=== PATIENT | female | born 1935 | race Caucasian/White ===

== ENCOUNTER 2018-02-05 15:03 | Inpatient (IN) | payer OTHER ==
[~2018-02-05] VITALS: Ht 165.1 cm; Wt 69.9 kg
[~2018-02-05 15:03] MED LIST: ASPIRIN EC81 M1 PO; CELECOXIB100 MG PO; CIPROFLOXACIN500 MG PO; CRESTOR10 M1 PO; GABAPENTIN100 MG PO; METOPROLOL SUCC50 M1 PO; TRIAMTERENE/HCT1 TAB PO
[2018-02-05 16:26] LABS: ABSOLUTE BASOPHIL COUNT 0 /CUMM (0.0-0.2); ABSOLUTE EOSINOPHIL COUNT 0.1 /CUMM (0.0-0.7); ABSOLUTE GRANULOCYTE CT 9.9 /CUMM (1.4-6.5); ABSOLUTE LYMPH COUNT 2.7 /CUMM (1.2-3.4); ABSOLUTE MONOCYTE COUNT 1.4 /CUMM (0.10-0.60); BASOPHIL % 0.2 % (0.0-2.0); EOSINOPHIL % 0.4 % (0-5); GRANULOCYTE % 70.6 % (42.2-75.2); HEMATOCRIT 33.6 % (37-47); MEAN CORPUSCULAR HGB 27.9 PG (27.0-31.0); MEAN CORPUSCULAR HGB CONC 33.3 G/DL (33.0-37.0); MEAN CORPUSCULAR VOLUME 83.8 FL (81.0-99.0); MEAN PLATELET VOLUME 7.6 FL (7.4-10.4); PLATELET COUNT 409 /CUMM (130-400); RED BLOOD CELL CT 4.01 /CUMM (4.20-5.40)
--- NOTE | 2018-02-05 16:47 | ED GENERAL ADULT ---
History of Present Illness General Chief Complaint: Upper Respiratory Sx/Fever Stated Complaint: URI X 1 WEEK/LARYNGITIS Source: patient, family, old records Exam Limitations: no limitations Allergies Coded Allergies: MDX - Penicillin (PENICILLIN) (Severe, ANAPHYLAXIS 02/26/15) Sulfa (Sulfonamide Antibiotics) (HIVES 02/05/18) ciprofloxacin (From CIPRO) (HIVES 02/05/18) Reconcile Medications Aspirin (Ecotrin) 81 MG TABLET.DR 1 TAB PO DAILY HEART HEALTH (Reported) Metoprolol Succinate (Metoprolol Succinate XL) 50 MG TAB.ER.24H 1 TAB PO DAILY BP (Reported) Rosuvastatin Calcium (Crestor) 10 MG TABLET 1 TAB PO DAILY CHOLETEROL ( Reported) TRIAMTERENE/HYDROCHLOROTHIAZID (Triamterene-Hctz 37.5-25 MG Tb) 37.5 MG-25 MG TABLET 1 TAB PO DAILY BP (Reported) Triage Note: PT STATES STATES SHE HAS HAD URI S/S FOR 1 WEEK WITH LARYNGITIS. PT IS TAKING ABX FOR A UTI AND THEN SHE IS FEELING SOB AND DIORIENTED PER DGT. PT ALSO HAS SORE THROAT WITH NO FEVER. PT CURRENTLY TAKING NITROFURANTOIN. PT WAS PLACED ON 2 OTHER ABX BUT HAD HIVES FROM THEM. Triage Nurses Notes Reviewed? yes Onset: Gradual Duration: week(s): (1), constant Timing: recent history Injury Environment: home Severity: moderate Severity Numbers: 6 No Modifying Factors: none Associated Symptoms: denies HPI: 82-year-old female history of coronary artery disease hypertension high cholesterol presents with her daughter for evaluation. The patient has recently finished a course of Macrobid for a urinary tract infection. She states for the past 1 week she's had upper respiratory symptoms nonproductive cough shortness of breath, hoarse voice. Her daughter states she doctor on the phone last night and appeared to be disoriented. She is back to her normal self now area no fever no chills she does report a sore throat. She denies any dysuria urgency frequency hematuria. No nausea vomiting diarrhea. There's been no slurred speech. The patient's daughter states she had a cardiac catheterization performed in March at which time it showed narrowing of her arteries however no stents were needed. (Shanna HULL,Thaddeus) Vital Signs & Intake/Output Vital Signs & Intake/Output Vital Signs Date Time Temp Pulse Resp B/P B/P Pulse O2 O2 Flow FiO2 Mean Ox Delivery Rate 02/05 1943 97.7 71 20 172/67 98 Room Air 02/05 1826 94 02/05 1654 65 18 169/73 97 Room Air 02/05 1650 95 Room Air 02/05 1612 98.6 72 18 176/71 95 Room Air (Valencia VALERIO,Raudel Yuan) Past History Travel History Traveled to [place] past 21 day No Medical History Any Pertinent Medical History? see below for history Cardiovascular: hypertension, hyperlipidemia Musculoskeletal: osteoarthritis, spinal stenosis Pneumonia Vaccine: 08/29/13 Surgical History Surgical History: non-contributory Psychosocial History Who do you live with Spouse Services at Home None What is your primary language B[place]an Tobacco Use: Never used ETOH Use: denies use Illicit Drug Use: denies illicit drug use Family History Hx Contributory? No (Thaddeus Stewart) Review of Systems Review of Systems Constitutional: Reports: see HPI. Comments Review of systems: See HPI, All other systems negative. Constitutional, no chills no fever, malaise HEENT: no sore throat no congestion, no ear pain Cardiovascular: No chest pain , no palpitation Skin: no rashes, no change in skin Respiratory: No dyspnea cough no sputum no hemoptysis GI: No nausea no vomiting, no diarrhea Muscle skeletal: No joint pain, no back pain Neurologic: , no headache Heme/endocrine: No bruising Immunology: No lymphadenopathy (Thaddeus Stewart) Physical Exam Physical Exam General Appearance: well developed/nourished, alert, awake Comments: Well-developed well-nourished person in no acute distress HEENT: Normal EENT exam; PERRL, EOMI, HEAD is atraumatic. moist mucous membranes. Neck: Supple, normal range of motion Back: Nontender, no CVA tenderness. Full range of motion Cardiovascular: Regular rate and rhythms no murmur Respiratory: Chest nontender.There were no bony deformities, no asymmetry. No respiratory distress. Patient speaking in full complete sentences. Breath sounds clear to auscultation bilaterally: NO W/R/R Abdomen: Soft, nontender nondistended, no appreciable organomegaly. Normal bowel sounds. No rebound/guarding, No ascites. Extremity: No edema, full range of motion of extremities, Neuro: Alert oriented x3, motor sensory normal, cranial nerves II through XII grossly intact. There were no obvious focal neurologic abnormalities. Skin: No appreciable rash on exposed skin, skin is warm and dry. Psych: Mood and affect is normal, memory and judgment is normal. Core Measures ACS in differential dx? Yes CVA/TIA Diagnosis: No Sepsis Present: No Sepsis Focused Exam Completed? No (Thaddeus Stewart) Progress Differential Diagnoses I considered the following diagnoses in my evaluation of the patient: UTI urosepsis pyelonephritis, pneumonia bronchitis influenza lecture light abnormality dehydration ami, unstable angina Diagnostic Imaging: Viewed by Me: Radiology Read. Discussed w/RAD: Radiology Read. Initial ED EKG: normal sinus rhythm, nonspecific ST T wave chg Prior EKG: unchanged (01/11) Rhythm Strip: normal sinus rhythm (Thaddeus Stewart) Plan of Care: Orders Procedure Date/time Status Regular Diet 02/06 D Active Heart Healthy Diet 02/06 B Active Pathway - chart 02/05 2142 Active House Staff 02/05 2142 Active Code Status 02/05 2142 Active URINE LYTES, SPOT 02/06 2132 Active ED Holding Orders 02/05 2051 Active Admit to inpatient 02/05 2051 Active Vital Signs 02/05 2051 Active Code Status 02/05 205 Complete Patient Data 02/05 202 Active BLOOD CULTURE 02/05 1711 Active LACTIC ACID 02/05 1711 Complete Intake & Output 02/05 1654 Active CULTURE,URINE 02/05 1645 Active URINALYSIS 02/05 1645 Complete TROPONIN LEVEL 02/05 1613 Complete COMPREHENSIVE METABOLIC PANEL 02/05 1613 Complete CBC WITHOUT DIFFERENTIAL 02/05 1613 Complete EKG 02/05 1613 Active RAPID VIRAL INFLUENZA A 02/05 1549 Complete VTE Mechanical Prophylaxis 02/05 UNK Active Current Medications Sig/Nicola Start time Last Medication Dose Stop Time Status Admin Heparin Sodium 5,000 UNIT Q8 02/05 2200 AC (Porcine) Sodium Chloride 1,000 ML ONCE ONE 02/05 1830 AC 02/05 (Normal Saline 0.9%) 02/069 204 Laboratory Tests 02/05/18 2011: Lactic Acid Cancelled 02/05/18 1728: Lactic Acid 1.1, Urinalysis MOD H, Urine Color YEL, Urine Clarity CLEAR, Urine pH 6.0, Ur Specific [place] 1.010, Urine Protein TRACE H, Urine Ketones NEG, Urine Nitrite NEG, Urine Bilirubin NEG, Urine Urobilinogen 1.0, Ur Leukocyte Esterase TRACE H, Ur Microscopic SEDIMENT EXAMINED, Urine WBC 3-5 H, Ur Epithelial Cells FEW, Urine Bacteria FEW H, Granular Casts FEW H, Urine Hemoglobin NEG, Urine Glucose NEG 02/05/18 1615: Anion Gap 15, Estimated GFR 39 L, BUN/Creatinine Ratio 18.5, Glucose 112 H, Calcium 9.1, Total Bilirubin 0.8, AST 58 H, ALT 58 H, Alkaline Phosphatase 105 , Troponin I 0.01, Total Protein 7.2, Albumin 4.1, Globulin 3.1, Albumin/ Globulin Ratio 1.3, CBC w Diff NO MAN DIFF REQ, RBC 4.01 L, MCV 83.8, MCH 27.9, MCHC 33.3, RDW 14.0, MPV 7.6, Gran % 70.6, Lymphocytes % 19.0 L, Monocytes % 9.8 H, Eosinophils % 0.4, Basophils % 0.2, Absolute Granulocytes 9.9 H, Absolute Lymphocytes 2.7, Absolute Monocytes 1.4 H, Absolute Eosinophils 0.1, Absolute Basophils 0 Microbiology 02/05 175 BLOOD: Blood Culture - RECD 02/05 1728 URINE ROUT: Urine Culture - RECD 02/05 1728 BLOOD: Blood Culture - RECD 02/05 1615 NASOPHARYN: Influenza Virus A & B Rapid Smear - COMP (Valencia VALERIO,Raudel Yuan) Departure Departure Time of Disposition: 1830 Disposition: HOME OR SELF CARE Condition: Stable Clinical Impression Primary Impression: Hyponatremia Secondary Impressions: Acute electrocardiogram changes, UTI (urinary tract infection) Referrals: Toño Langley MD (PCP/Family) Departure Forms: Customer Survey General Discharge Information Admission Note Spoke With: Moses VALERIO,Kirt Vincent Documentation of Exam: Documentation of any treatments & extenuating circumstances including Concerns Regarding Discharge (functional status, medication knowledge or non-compliance, living conditions, etc.) that warrant an admission rather than observation: iv abx, trend labs, trend trooponin, iv fluids, cardio consult, premature discharge would be medically harmful (Shanna HULL,Thaddeus) PA/SAP PI DEVELOPER Co-Sign Statement Statement: ED Attending supervision documentation- [x] I saw and evaluated the patient. I have also reviewed all the pertinent lab results and diagnostic results. I agree with the findings and the plan of care as documented in the PA's/SAP PI DEVELOPER's documentation. Patient presents for evaluation of upper respiratory symptoms, hoarse voice and dyspnea. Physical examination reveals a relatively comfortable appearing woman with a hoarse voice and harsh breath sounds bilaterally on lung examination. [] I have reviewed the ED Record and agree with the PA's/SAP PI DEVELOPER's documentation. [] Additions or exceptions (if any) to the PAs/SAP PI DEVELOPER's note and plan are summarized below: [] (Valencia VALERIO,Raudel Yuan) Critical Care Note Critical Care Note Critical Care Time: non-applicable (Shanna HULL,Thaddeus)
--- NOTE | 2018-02-05 17:58 | RADIOLOGY REPORT ---
EXAMINATION: XR PORTABLE CHEST CLINICAL INFORMATION: 82-year-old female patient with shortness of breath and chest pain. Presumptive diagnosis: Pneumonia. COMPARISON: Chest x-ray on 11/20/2017. (Normal). TECHNIQUE: Portable AP semierect view of the chest was obtained. FINDINGS: No significant abnormality is noted involving the heart, lungs, mediastinum, bony thorax or soft tissues. IMPRESSION: No pneumonia.
--- NOTE | 2018-02-05 20:27 | History & Physical ---
[facility] General Information and HPI MD Statement: I have seen and personally examined NILES MENDEZ and documented this H&P. The patient is a 82 year old F who presented with a patient stated chief complaint of [chest congestion]. Source of Information: patient, family Exam Limitations: no limitations History of Present Illness: 82 yo F with PMH of hypertension, hyperlipidemia, CAD, OA, spinal stenosis, aortic stenosis was brought in to the ED by her daughter for evaluation of upper respiratory symptoms. Most of the history has been obtained from the daughter. The daugher states that for the past week the patient has been experiencing worsening chest congestion, nonproductive cough with hoarse voice. Her symptoms were particularly worse today. The daughter felt that the patient appeared to be confused last night but is completely normal today. Also the patient has had a poor oral intake the past few days. She normally walks around the house using a cane. No falls reported. The patient was recently treated for a UTI. She was initialy treated with Bactrim but developed a rash to it and hence was switched to Macrobid which she is still taking. According to the daughter, the patient experiences white coat hypertension. Allergies/Medications Home Med list Aspirin (Ecotrin) 81 MG TABLET.DR 1 TAB PO DAILY HEART HEALTH (Reported) Lisinopril/Hydrochlorothiazide (Lisinopril-Hctz 20-25 MG Tab) 20 MG-25 MG TABLET 1 TAB PO DAILY HTN (Reported) Metoprolol Succinate (Metoprolol Succinate XL) 50 MG TAB.ER.24H 1 TAB PO DAILY BP (Reported) Metoprolol Succinate 50 MG TAB.ER.24H 1 TAB PO DAILY HIGH BLOOD PRESSURE ( Reported) Nitrofurantoin Macrocrystal (Nitrofurantoin) 50 MG CAPSULE 1 CAP PO DAILY ANTIBIOTIC, INFECTION (Reported) Rosuvastatin Calcium (Crestor) 10 MG TABLET 1 TAB PO DAILY CHOLETEROL ( Reported) Rosuvastatin Calcium (Crestor) 10 MG TABLET 1 TAB PO DAILY HIGH CHOLESTROL ( Reported) TRIAMTERENE/HYDROCHLOROTHIAZID (Triamterene-Hctz 37.5-25 MG Tb) 37.5 MG-25 MG TABLET 1 TAB PO DAILY BP (Reported) Triamterene/Hydrochlorothiazid (Triamterene-Hctz 37.5-25 MG Tb) 37.5 MG-25 MG TABLET 1 TAB PO DAILY HIGH BLOOD PRESSURE (Reported) Past History Travel History Traveled to [place] past 21 day No Medical History Cardiovascular: hypertension, hyperlipidemia Musculoskeletal: osteoarthritis, spinal stenosis Pneumonia Vaccine: 08/29/13 Surgical History Surgical History: non-contributory Past Family/Social History Psychosocial History Services at Home: None ETOH Use: denies use Illicit Drug Use: denies illicit drug use Review of Systems Review of Systems Constitutional: Reports: chills. Denies: fever. EENTM: Reports: no symptoms. Cardiovascular: Denies: chest pain, palpitations. Respiratory: Reports: cough, short of breath. GI: Denies: abdominal pain. Genitourinary: Reports: no symptoms. Musculoskeletal: Denies: joint pain, muscle pain. Skin: Reports: no symptoms. Neurological/Psychological: Reports: no symptoms. Hematologic/Endocrine: Reports: no symptoms. Exam & Diagnostic Data Last 24 Hrs of Vital Signs/I&O Vital Signs Date Time Temp Pulse Resp B/P B/P Pulse O2 O2 Flow FiO2 Mean Ox Delivery Rate 02/05 2251 98.1 69 20 172/70 02/05 2215 98.1 69 20 172/70 98 Room Air 02/05 1943 97.7 71 20 172/67 98 Room Air 02/05 1826 94 02/05 1654 65 18 169/73 97 Room Air 02/05 1650 95 Room Air 02/05 1612 98.6 72 18 176/71 95 Room Air Intake & Output 02/06 0800 02/06 0000 02/05 1600 Intake Total 0 Output Total Balance 0 Intake, Oral 0 Patient 140 lb Weight Weight Reported by Patient Measurement Method Physical Exam General Appearance Alert, Oriented X3, Cooperative, Mild Distress Skin No Rashes, No Breakdown Skin Temp/Moisture Exam: Warm/Dry Sepsis Skin Exam (color): Normal for Ethnicity HEENT Atraumatic Cardiovascular Normal S1, Normal S2, No Murmurs Lungs diffuse wheezing Abdomen Soft, No Tenderness Neurological Normal Speech Extremities trace b/l lower extremity edema Assessment/Plan Assessment: 82 yo F with PMH of hypertension, hyperlipidemia, OA, spinal stenosis, aortic stenosis was brought in to the ED by her daughter for evaluation of upper respiratory symptoms. Assessment: 1. Bronchitis 2. EKG changes with T-wave inversions in V4-V5. 3. Hyponatremia 4. UTI Plan: * Admit to telemetry * Serial trops and EKGs to r/o ACS due to EKG changes * Hydrate with one bag of IV NS @150ml/hr. Hyponatremia likely in the setting of poor oral intake and diuretic use. * F/u urine lytes * Follow up blood culture and urine culture * She was given one dose of IV 1g Ceftriaxone in the ER. Can be continued on it. * TRC/nebs as needed. * Continue home meds but will hold HCTZ in the setting of hyponatremia. * The patient follows Dr Deepa Rosario (vascular surgery) and was due to see him on 02/06. Confirm if the patient needs to see him while inpatient. * Diet: Regular * DVT Prophylaxis: SC heparin * Code: Full Code. As Ranked By This Provider Problem List: 1. Acute electrocardiogram changes Core Measures/Misc (07/15) Acute Coronary Syndrome ACS Diagnosis: No Congestive Heart Failure Congestive Heart Failure Diagnosis No Cerebrovascular Accident CVA/TIA Diagnosis: No VTE (View Protocol) VTE Risk Factors Age>40 No Mechanical VTE Prophylaxis d/t N/A MechProphylax Ordered No VTE Pharm Prophylaxis d/t NA PharmProphylax ordered Sepsis (View protocol) Sepsis Present: No Blake VALERIO,Ismail 02/06/18 0500: General Information and HPI Allergies/Medications Allergies: Coded Allergies: Penicillins (Severe, ANAPHYLAXIS 02/06/18) Sulfa (Sulfonamide Antibiotics) (HIVES 02/05/18) ciprofloxacin (From CIPRO) ([facility] 02/05/18) Resident Review Statement Resident Statement: examined this patient, discussed with internal control analyst, agreed with internal control analyst Other Findings: 82 year old female with PMHx of HTN, HLD, CAD s/p catheterization in March without stent, OA, spinal stenosis, aortic stenosis and carotid stenosis who presented for chief complaint of upper respiratory infection and generalize weakness. Recently the patient had UTI for which she was treated with ciprofloxacin, the patient developed rash allergic reaction for which she was switched to Macrobid. For the past week she started to complain of nonproductive cough, dyspnea, mild runny nose, and hoarseness of voice. Her symptom progressed through the week and started to be associated with generalized weakness and poor appetite. She denies fever, chills, chest pain, or palpitation. She denies dysuria, polyuria, or hematuria. Vitals and physical exam on admission: Temp 98.6, HR 72, RR 18, BP 176/71, Ox 95 on RA. Physical Exam: General appearance A & O x3 in mild distress, HEENT normal , CVS NL S1/S2 with 2/6 systolic murmur best heard over the apex, no JVD rubs or gallop. Resp diffuse scattered wheezing and mild bilateral basal rhonchi, intermittent dry cough, hoarseness of voice. LE trace B/L LE edema. Significant labs and imaging on admission: Leukocytosis of 14, H&H 11.2&33.6, Plt 409. Na 127, K 3.6, Cr 1.3 (at baseline), very mild transaminitis, normal calcium. CXR no significant finding. Assessment The patient presented with symptom of upper respiratory infection and possible bronchitis. She has poor oral intake for few days, however she continued taking 2 diuretics pills includes lisinopril-HCTZ and Triamteren-HCTZ. Flu test was negative. She received ceftriaxone in the ED. EKG showed new T-wave inversion in V4,5,6. Troponin 0.01 then 0.03. She denies any current active chest pain. According to the patient daughter, the patient has significant aortic stenosis and carotid stenosis, she had appointment with vascular tomorrow to further address her carotid stenosis. Problem list * Dry cough possibly secondary to bronchitis * T-wave inversion in lead V4,5,6 * Generalize weakness most likely secondary to dehydration and poor oral intake * Hyponatremia most likely secondary to dehydration * UTI * HTN and HLD * Alert stenosis * Carotid stenosis * CAD s/p catheterization in March without stent Plan * We will admit to telemetry rule out ACS with serial EKG and troponin * Hold lisinopril, hydrochlorothiazide, and Triamteren * Repeat renal function in the morning * Continue aspirin and statin * Start amlodipine 5 mg controlled blood pressure * TRC/nebulizer as needed * Panculture * Continue IV ceftriaxone * Guaifenesin as needed * Send for urine electrolytes and osmolarity(patient was given IV fluids in the ED) * Repeat BEP in the morning. -Heart healthy diet -DVT Prophylaxis: SC heparin -Code: Full Code. Moses VALERIO,[facility] 02/06/18 1348: Attending MD Review Statement Attending Statement Attending MD Statement: examined this patient, discuss w/resident/PA/COLLECTION ANALYST, agreed w/resident/PA/COLLECTION ANALYST, discussed with family, reviewed EMR data (avail), discussed with nursing, discussed with case mgmt, reviewed images, amended to note Attending Assessment/Plan: Seen and examined stable Issues Sig hyponatremia Dehydration New EKG changes with Aortic stenosis rule out active ihd, pt had a recent stent in march URI with sig bronchitis Hoarse voice with laryngitis needs to be investigated if it does not resolve UTI, PLAN Admit Rule out mi watch sodium replace lYtes Call Cardio Other plan as noted
[2018-02-05] MEDS ORDERED: LISINOPRIL-HCT1 EAC1 PO (21:54)
[2018-02-05] MEDS ORDERED: METOPROLOL SUCC50 M2 PO (22:21)
[2018-02-05] MEDS ORDERED: TRIAMTERENE-HC1 EAC1 PO (22:22)
[2018-02-05] MEDS ORDERED: NITROFURANTOIN50 M1 PO (22:22)
[2018-02-05] MEDS ORDERED: CRESTOR10 M1 PO (22:22)
--- NOTE | 2018-02-06 05:35 | Event Note ---
Event Note Event Note: I spoke to the patient granddaughter Ce over the phone. She is in the medical field and she is following her grandmother medical conditions. She sent me EKG that was done last year that did not show T-wave inversion as seen in current EKGs. She also informed me about Echo report summary that was done to further address her aortic stenosis. " TTE 05/19/2016 showed moderate stenosis, peak velocity (aortic) 3.6, mean aortic gradient 30 with aortic valve area 1.0. TTE 01/05/17 showed moderate stenosis: Peak aortic velocity 3.6, mean gradient 27 and aortic area 0.9.
[2018-02-06 07:28] VITALS: BP 148/68
[2018-02-06 08:42] LABS: ABSOLUTE BASOPHIL COUNT 0 /CUMM (0.0-0.2); ABSOLUTE EOSINOPHIL COUNT 0.1 /CUMM (0.0-0.7); ABSOLUTE GRANULOCYTE CT 7.6 /CUMM (1.4-6.5); EOSINOPHIL % 1.2 % (0-5)
[2018-02-06 08:57] LABS: BASOPHIL % 0.3 % (0.0-2.0); GRANULOCYTE % 64.3 % (42.2-75.2); MEAN CORPUSCULAR HGB 27.9 PG (27.0-31.0); MEAN CORPUSCULAR HGB CONC 33.4 G/DL (33.0-37.0); MEAN CORPUSCULAR VOLUME 83.5 FL (81.0-99.0); MEAN PLATELET VOLUME 8.2 FL (7.4-10.4); PLATELET COUNT 344 /CUMM (130-400); RBC DISTRIBUTION WIDTH 13.9 % (11.5-14.5); RED BLOOD CELL CT 3.36 /CUMM (4.20-5.40); WHITE BLOOD CELL COUNT 11.8 /CUMM (4.8-10.8)
--- NOTE | 2018-02-06 10:28 | PN- Housestaff ---
Rik VALERIO,Elsie 02/06/18 1027: Subjective Follow-up For: bronchitis new t wave ekg changes hyponatremia hypokalemia anemia Tele-Events Since Last Visit: nsr no events Subjective: patient states that she continues to have hoarseness and chest "congestion". she denies any urinary symptoms (as she recently has been on antibiotics for UTI ) Review of Systems Constitutional: Reports: no symptoms. Cardiovascular: Reports: no symptoms. Respiratory: Reports: see HPI, short of breath, wheezing. Gastrointestinal: Reports: no symptoms. Genitourinary: Reports: no symptoms. Musculoskeletal: Reports: no symptoms. Objective Last 24 Hrs of Vital Signs/I&O Vital Signs Date Time Temp Pulse Resp B/P B/P Pulse O2 O2 Flow FiO2 Mean Ox Delivery Rate 02/06 1735 174/76 02/06 1630 97 Room Air 02/06 1531 98.1 81 20 174/76 98 Room Air 02/06 1153 Room Air 02/06 1122 97 Room Air 02/06 0934 70 160/62 02/06 0934 97.8 70 20 160/62 02/06 0800 94 Room Air Room Air 02/06 0728 97.8 63 20 148/68 99 Nasal 2.0L Cannula 02/06 0521 98 Nasal 2.0L Cannula 02/06 0000 Room Air 02/05 2251 98.1 69 20 172/70 02/05 2215 98.1 69 20 172/70 98 Room Air 02/05 1943 97.7 71 20 172/67 98 Room Air 02/05 1826 94 Intake & Output 02/06 1600 02/06 0800 02/06 0000 Intake Total 1180 500 0 Output Total 300 Balance 1180 200 0 Intake, IV 700 400 Intake, Oral 480 100 0 Number 0 Bowel Movements Output, Urine 300 Patient 140 lb Weight Weight Reported by Patient Measurement Method Physical Exam General Appearance: Alert, Oriented X3, Cooperative, No Acute Distress Skin Temp/Moisture Exam: Warm/Dry Sepsis Skin Exam (color): Normal for Ethnicity HEENT: Atraumatic, PERRLA, EOMI, Mucous Membr. moist/pink Neck: Supple, No JVD Cardiovascular: Regular Rate, Normal S1, Normal S2, No Murmurs Lungs: Clear to Auscultation, Normal Air Movement Abdomen: Normal Bowel Sounds, Soft, No Tenderness, No Hepatospenomegaly, No Masses Neurological: Normal Speech Extremities: No Clubbing, No Cyanosis, No Edema, Normal Pulses Current Medications: Current Medications Sig/Nicola Start time Last Medication Dose Route Stop Time Status Admin Albuterol Sulfate 3 ML EVERY 4 HRS/AWAKE 02/06 2000 AC INH Albuterol Sulfate 3 ML EVERY 4 HRS/AWAKE 02/06 1600 AC 02/06 INH 1630 Albuterol Sulfate 3 ML Q4P PRN 02/06 1115 DC 02/06 INH 1101 Albuterol Sulfate 3 ML ONCE ONE 02/06 0515 DC 02/06 INH 02/06 0516 0511 Amlodipine Besylate 2.5 MG DAILY 02/06 1316 AC 02/06 PO 1735 Amlodipine Besylate 5 MG DAILY 02/06 1000 AC 02/06 PO 0934 Amlodipine Besylate 5 MG ONCE ONE 02/05 2300 DC 02/05 PO 02/05 2301 2251 Amlodipine Besylate 0 .STK-MED ONE 02/05 2246 DC PO Aspirin Buffered 81 MG DAILY 02/06 1000 AC 02/06 PO 0934 Atorvastatin Calcium 40 MG 1700 02/06 1700 AC 02/06 PO 1736 Ceftriaxone Sodium 1,000 MG DAILY 02/06 1000 DC 02/06 IV 0935 Ceftriaxone Sodium 0 .STK-MED ONE 02/05 1836 DC .ROUTE Ceftriaxone Sodium 1,000 MG ONCE ONE 02/05 1830 DC 02/05 IV 02/05 1831 1841 Guaifenesin 10 ML Q4P PRN 02/06 0515 AC 02/06 PO 0528 Guaifenesin/ 10 ML .STK-MED ONE 02/06 0944 DC Dextromethorphan PO 02/06 0945 Heparin Sodium 5,000 UNIT Q8 02/05 2200 AC 02/06 (Porcine) SC 1406 Metoprolol Succinate 50 MG DAILY 02/06 1000 AC 02/06 PO 0934 Potassium Chloride 40 MEQ ONCE ONE 02/06 1315 DC 02/06 PO 02/06 1316 1410 Sodium Chloride 1,000 ML Q10H 02/06 0530 DC 02/06 IV 0528 Sodium Chloride 1,000 ML BOLUS ONE 02/05 1830 DC 02/05 IV 02/05 1929 1841 Sodium Chloride 1,000 ML ONCE ONE 02/05 1830 DC 02/05 IV 02/06 0109 2042 Last 24 Hrs of Lab/Ronnell Results Last 24 Hrs of Labs/Mics: Laboratory Tests 02/06/18 0630: Anion Gap 11, Estimated GFR 53 L, BUN/Creatinine Ratio 18.0, Troponin I 0.02, CBC w Diff NO MAN DIFF REQ, RBC 3.36 L, MCV 83.5, MCH 27.9, MCHC 33.4, RDW 13.9 , MPV 8.2, Gran % 64.3, Lymphocytes % 25.5, Monocytes % 8.7, Eosinophils % 1.2, Basophils % 0.3, Absolute Granulocytes 7.6 H, Absolute Lymphocytes 3.0, Absolute Monocytes 1.0 H, Absolute Eosinophils 0.1, Absolute Basophils 0 02/05/182203: Troponin I 0.03 02/05/182203: Anion Gap 10, Estimated GFR 43 L, BUN/Creatinine Ratio 18.3 02/05/182149: Ur Random Creatinine 46.9, Ur Random Sodium 47, Ur Random Potassium 9.3, Fraction Sodium Excret 1.0 02/05/182010: Lactic Acid Cancelled Assessment/Plan Assessment: 82 year old female with PMHx of HTN, HLD, CAD s/p catheterization in March without stent, OA, spinal stenosis, aortic stenosis and carotid stenosis who presented for chief complaint of upper respiratory infection and generalize weakness. Recently the patient had UTI for which she was treated with ciprofloxacin, the patient developed rash allergic reaction for which she was switched to Macrobid. For the past week she started to complain of nonproductive cough, dyspnea, mild runny nose, and hoarseness of voice. Her symptom progressed through the week and started to be associated with generalized weakness and poor appetite. She denies fever, chills, chest pain, or palpitation. She denies dysuria, polyuria, or hematuria. Vitals and physical exam on admission: Temp 98.6, HR 72, RR 18, BP 176/71, Ox 95 on RA. Physical Exam: General appearance A & O x3 in mild distress, HEENT normal , CVS NL S1/S2 with 2/6 systolic murmur best heard over the apex, no JVD rubs or gallop. Resp diffuse scattered wheezing and mild bilateral basal rhonchi, intermittent dry cough, hoarseness of voice. LE trace B/L LE edema. Significant labs and imaging on admission: Leukocytosis of 14, H&H 11.2&33.6, Plt 409. Na 127, K 3.6, Cr 1.3 (at baseline), very mild transaminitis, normal calcium. CXR no significant finding. Assessment The patient presented with symptom of upper respiratory infection and possible bronchitis. She has poor oral intake for few days, however she continued taking 2 diuretics pills includes lisinopril-HCTZ and Triamteren-HCTZ. Flu test was negative. She received ceftriaxone in the ED. EKG showed new T-wave inversion in V4,5,6. Troponin 0.01 then 0.03. She denies any current active chest pain. According to the patient daughter, the patient has significant aortic stenosis and carotid stenosis, she had appointment with vascular tomorrow to further address her carotid stenosis. TTE 05/19/2016 showed moderate stenosis, peak velocity (aortic) 3.6, mean aortic gradient 30 with aortic valve area 1.0. TTE showed moderate stenosis: Peak aortic velocity 3.6, mean gradient 27 and aortic area 0.9. Problem list * Dry cough possibly secondary to bronchitis or lisinopril?? * T-wave inversion in lead V4,5,6 * Generalize weakness most likely secondary to dehydration and poor oral intake * Hyponatremia most likely secondary to dehydration and hctz * hypokalemia * anemia * HTN and HLD * Aortic stenosis * Carotid stenosis * CAD s/p catheterization in March without stent Plan * serial ekgs unchanged and trops negative, patient has no symptoms. * Hold lisinopril, hydrochlorothiazide, and Triamterene * Continue aspirin and statin * amlodipine 7.5mg to bring bp to systolic 140's. continue outpatient metoprolol 50mg. * TRC/nebulizer as needed AND OXYGEN as needed * follow panculture * stop ceftriaxone as she has received antibiotics fuill dose for uncomplicated uti * Guaifenesin as needed * follow na and k and replete k as needed. sodium has increased to 131 from 127. patient likely dehydrated as fena 1, urine random sodium normal and responded to fluids. additionally hctz could contribute so hold. hold lisinopril for cough and hoarse voice, may need arb. * patient has a relative anemia- drop in Hb. irons studies pending. goal hb to stay above 8. -Heart healthy diet -DVT Prophylaxis: SC heparin -Code: Full Code. Problem List: 1. Acute electrocardiogram changes 2. Hypokalemia 3. Hyponatremia Pain Ratin Pain Location: na Pain Goal: Remain pain free Pain Plan: na Tomorrow's Labs & Rationales: cbc bep Moses VALERIO,[facility] 02/06/18 1352: Attending MD Review Statement Attending Statement Attending MD Statement: examined this patient, discuss w/resident/PA/[employer], agreed w/resident/PA/[employer], discussed with family, reviewed EMR data (avail), discussed with nursing, discussed with case mgmt, reviewed images, amended to note Attending Assessment/Plan: Seen and examined independently 82 yo F with PMH of hypertension, hyperlipidemia, OA, spinal stenosis, aortic stenosis was brought in to the ED by her daughter for evaluation of upper respiratory symptoms. Assessment: 1. Bronchitis/ Acute renal failure due to dehyration, uti and hctz now resolved 2. EKG changes with T-wave inversions in V4-V5. 3. Hyponatremia due to dehydration and hctz 4. Recent Ecoli UTI 5. Aortic stenosis 6. rule out ihd 7. Hoarse voice with laryngitis 8. PVD with carotid stenosis with no urgent need for vascular intervention REC cont current meds DC HCTZ meds completely REplace potassium by mouth DC lisinopril (cough and hoarse voice) and if bp permits start low dose losartan Cont low dose norvasc cont statin Start Azitro 500 qd for 5 days for bronchitis Nebs prn Po potassium replacement Watch sodium Cont asprin
--- NOTE | 2018-02-06 13:49 | Admission Certification ---
Admission Certification Certification Statement - As attending physician, I certify that at the time of - admission, based on clinical presentation, severity of - symptoms, need for further diagnostic testing and - therapeutic interventions, and risk of adverse outcomes - without in-hospital treatment, in my clinical assessment, - this patient requires an acute hospital stay for a minimum - of two nights or longer. I have also considered psychsocial - factors such as support system, advanced age, financial - issues, cognitive issues, and failed out-patient treatments, - past re-admission history, safety of patient, and lack of - compliance as applicable. Specific rationale supporting this admission is: chest pain discomfort, ekg changes, bronchitis and generalized weakness with sig hyponatremia
[2018-02-06 15:31] VITALS: BP 174/76
[2018-02-06 20:44] LABS: ABSOLUTE BASOPHIL COUNT 0.1 /CUMM (0.0-0.2); ABSOLUTE EOSINOPHIL COUNT 0.2 /CUMM (0.0-0.7); ABSOLUTE GRANULOCYTE CT 7.3 /CUMM (1.4-6.5); ABSOLUTE LYMPH COUNT 3.8 /CUMM (1.2-3.4); ABSOLUTE MONOCYTE COUNT 0.9 /CUMM (0.10-0.60); BASOPHIL % 0.6 % (0.0-2.0); EOSINOPHIL % 1.6 % (0-5); GRANULOCYTE % 59.6 % (42.2-75.2); HEMATOCRIT 31.3 % (37-47); MEAN CORPUSCULAR HGB 26.9 PG (27.0-31.0); MEAN CORPUSCULAR HGB CONC 32.1 G/DL (33.0-37.0); MEAN CORPUSCULAR VOLUME 83.7 FL (81.0-99.0); MEAN PLATELET VOLUME 8.1 FL (7.4-10.4); PLATELET COUNT 437 /CUMM (130-400); RBC DISTRIBUTION WIDTH 14.1 % (11.5-14.5); RED BLOOD CELL CT 3.74 /CUMM (4.20-5.40); WHITE BLOOD CELL COUNT 12.2 /CUMM (4.8-10.8)
[2018-02-06 22:34] VITALS: BP 142/56
[2018-02-07 06:59] VITALS: BP 122/68
[2018-02-07 07:48] LABS: ABSOLUTE BASOPHIL COUNT 0.1 /CUMM (0.0-0.2); ABSOLUTE EOSINOPHIL COUNT 0.2 /CUMM (0.0-0.7); ABSOLUTE GRANULOCYTE CT 7.1 /CUMM (1.4-6.5); BASOPHIL % 0.4 % (0.0-2.0); EOSINOPHIL % 1.9 % (0-5); HEMATOCRIT 27.8 % (37-47); MEAN CORPUSCULAR HGB 28.6 PG (27.0-31.0); MEAN CORPUSCULAR HGB CONC 34.5 G/DL (33.0-37.0); MEAN PLATELET VOLUME 7.7 FL (7.4-10.4); PLATELET COUNT 399 /CUMM (130-400); RBC DISTRIBUTION WIDTH 14.2 % (11.5-14.5); RED BLOOD CELL CT 3.36 /CUMM (4.20-5.40); WHITE BLOOD CELL COUNT 11.4 /CUMM (4.8-10.8)
--- NOTE | 2018-02-07 08:20 | PN- Housestaff ---
Subjective Follow-up For: bronchitis new t wave ekg changes hyponatremia hypokalemia anemia Complaints: no complaints Tele-Events Since Last Visit: Normal sinus rhythm with rates from 61-88, no events Subjective: Patient states that she continues to have chest congestion and now is producing white sputum after taking Tessalon Perles. She states that she feels tired. She has been constipated for the past 4 days. Review of Systems Constitutional: Reports: no symptoms. Cardiovascular: Reports: no symptoms. Respiratory: Reports: cough, wheezing. Gastrointestinal: Reports: constipation. Musculoskeletal: Reports: no symptoms. Objective Last 24 Hrs of Vital Signs/I&O Vital Signs Date Time Temp Pulse Resp B/P B/P Pulse O2 O2 Flow FiO2 Mean Ox Delivery Rate 02/07 1410 98.0 79 20 146/60 96 Room Air 02/07 0903 74 122/68 02/07 0902 74 122/68 02/07 0820 96 Room Air 02/07 0659 97.4 74 20 122/68 97 Room Air 02/07 0000 Room Air 02/06 2234 98.0 79 20 142/56 98 Room Air 02/06 1735 174/76 02/06 1630 97 Room Air Intake & Output 02/07 1600 02/07 0800 02/07 0000 Intake Total 480 Output Total Balance 480 Intake, Oral 480 Patient 152 lb Weight Weight Chair scale Measurement Method Physical Exam General Appearance: Alert, Oriented X3, Cooperative, No Acute Distress Skin Temp/Moisture Exam: Warm/Dry Sepsis Skin Exam (color): Normal for Ethnicity HEENT: Atraumatic, PERRLA, EOMI, Mucous Membr. moist/pink Neck: Supple, No JVD Cardiovascular: Regular Rate, Normal S1, Normal S2 Lungs: mild wheezing throughout Abdomen: Normal Bowel Sounds, Soft, No Tenderness Neurological: Normal Speech Extremities: No Clubbing, No Cyanosis, No Edema, Normal Pulses Current Medications: Current Medications Sig/Nicola Start time Last Medication Dose Route Stop Time Status Admin Albuterol Sulfate 3 ML EVERY 4 HRS/AWAKE 02/06 2000 DC INH Albuterol Sulfate 3 ML EVERY 4 HRS/AWAKE 02/06 1600 AC 02/07 INH 1310 Amlodipine Besylate 7.5 MG DAILY 02/07 0900 AC 02/07 PO 0903 Amlodipine Besylate 2.5 MG DAILY 02/06 1316 DC 02/06 PO 1735 Amlodipine Besylate 5 MG DAILY 02/06 1000 DC 02/06 PO 0934 Aspirin Buffered 81 MG DAILY 02/06 1000 AC 02/07 PO 0901 Atorvastatin Calcium 40 MG 1700 02/06 1700 AC 02/06 PO 1736 Azithromycin 500 MG DAILY@0900 02/07 0900 AC 02/07 PO 02/11 0901 0901 Benzonatate 100 MG TID PRN 02/06 2145 AC 02/07 PO 02/09 214 0901 Docusate Sodium 100 MG BID 02/07 0900 AC 02/07 PO 0903 Guaifenesin 10 ML Q4P PRN 02/06 0515 AC 02/06 PO 0528 Heparin Sodium 5,000 UNIT Q8 02/05 2200 AC 02/07 (Porcine) SC 1254 Metoprolol Succinate 50 MG DAILY 02/06 1000 AC 02/07 PO 0902 Patient Medication 1 ED ONE ONE 02/07 1000 DC 02/07 Teaching ED 02/07 1001 1016 Polyethylene Glycol 17 GM DAILY 02/07 0900 AC 02/07 PO 1038 Senna 187 MG AT BEDTIME 02/07 2100 AC PO Last 24 Hrs of Lab/Ronnell Results Last 24 Hrs of Labs/Mics: Laboratory Tests 02/07/18 0656: Anion Gap 12, Estimated GFR 47 L, BUN/Creatinine Ratio 14.5, CBC w Diff NO MAN DIFF REQ, RBC 3.36 L, MCV 83.0, MCH 28.6, MCHC 34.5, RDW 14.2, MPV 7.7, Gran % 62.0, Lymphocytes % 26.6, Monocytes % 9.1, Eosinophils % 1.9, Basophils % 0.4, Absolute Granulocytes 7.1 H, Absolute Lymphocytes 3.0, Absolute Monocytes 1.0 H, Absolute Eosinophils 0.2, Absolute Basophils 0.1 02/06/181951: Anion Gap 13, Estimated GFR 36 L, BUN/Creatinine Ratio 12.1, Iron 39, TIBC 320, Ferritin 149.0, CBC w Diff NO MAN DIFF REQ, RBC 3.74 L, MCV 83.7, MCH 26.9 L, MCHC 32.1 L, RDW 14.1, MPV 8.1, Gran % 59.6, Lymphocytes % 31.0, Monocytes % 7.2, Eosinophils % 1.6, Basophils % 0.6, Absolute Granulocytes 7.3 H, Absolute Lymphocytes 3.8 H, Absolute Monocytes 0.9 H, Absolute Eosinophils 0.2, Absolute Basophils 0.1 Assessment/Plan Assessment: 82 year old female with PMHx of HTN, HLD, CAD s/p catheterization in March without stent, OA, spinal stenosis, aortic stenosis and carotid stenosis who presented for chief complaint of upper respiratory infection and generalize weakness. Recently the patient had UTI for which she was treated with ciprofloxacin, the patient developed rash allergic reaction for which she was switched to Macrobid. For the past week she started to complain of nonproductive cough, dyspnea, mild runny nose, and hoarseness of voice. Her symptom progressed through the week and started to be associated with generalized weakness and poor appetite. She denies fever, chills, chest pain, or palpitation. She denies dysuria, polyuria, or hematuria. Problem list * Dry cough possibly secondary to bronchitis or lisinopril?? * T-wave inversion in lead V4,5,6 * Generalize weakness most likely secondary to dehydration and poor oral intake * Hyponatremia most likely secondary to dehydration and hctz * hypokalemia * anemia * HTN and HLD * Aortic stenosis * Carotid stenosis * CAD s/p catheterization in March without stent Plan * serial ekgs unchanged and trops negative, patient has no symptoms. * Hold lisinopril, hydrochlorothiazide, and Triamterene * Continue aspirin and statin * amlodipine 7.5mg to bring bp to systolic 140's or less. continue outpatient metoprolol 50mg. * TRC/nebulizer as needed AND OXYGEN as needed * follow panculture * stopped ceftriaxone as she has received antibiotics fuill dose for uncomplicated uti * Guaifenesin as needed, Tessalon Perles, azithromycin for her bronchitis * follow na and k and replete k as needed. sodium has increased today to 135, potassium 4.4. patient likely dehydrated as fena 1, urine random sodium normal and responded to fluids. additionally hctz could contribute so hold. hold lisinopril for possible cause of cough and hoarse voice, giving amlodipine now for blood pressure * patient has a relative anemia- 9.6 down from 11.2 on admission. irons studies normal. goal hb to stay above 8. * We will guaiac stools and give Colace, senna, MiraLAX for her constipation. * Patient will likely be stable enough to go tomorrow. -Heart healthy diet -DVT Prophylaxis: SC heparin -Code: Full Code. Problem List: 1. Bronchitis 2. Acute electrocardiogram changes 3. Hypokalemia 4. Hyponatremia 5. Hypertension 6. Hyperlipidemia Pain Ratin Pain Location: na Pain Goal: Remain pain free Pain Plan: na Tomorrow's Labs & Rationales: cbc bep
--- NOTE | 2018-02-07 08:39 | Patient Discharge Instructions ---
Discharge Instructions General Discharge Information You were seen/treated for: BRONCHITIS ANEMIA LOW SODIUM AND POTASSIUM IN THE BLOOD EKG changes without symptoms Special Instructions: 1. please follow up with PCP in one week 2. please finish course of azithromycin (5 days total) 3. please follow up with your dot etcher in 1-2 weeks 3. please return if breathing worsens Diet Continue normal diet: Yes Activity Full Activity/No Limits: Yes Acute Coronary Syndrome Inclusion Criteria At DC or during hospital stay patient has or had the following: ACS DIAGNOSIS No Discharge Core Measures Meds if any: Prescribed or Continued at Discharge Meds if any: NOT Prescribed or Continued at Discharge Congestive Heart Failure Inclusion Criteria At DC or during hospital stay patient has or had the following: CHF DIAGNOSIS No Discharge Core Measures Meds if any: Prescribed or Continued at Discharge Meds if any: NOT Prescribed or Continued at Discharge Cerebrovascular accident Inclusion Criteria At DC or during hospital stay patient has or had the following: CVA/TIA Diagnosis No Discharge Core Measures Meds if any: Prescribed or Continued at Discharge Meds if any: NOT Prescribed or Continued at Discharge Venous thromboembolism Inclusion Criteria VTE Diagnosis No VTE Type NONE VTE Confirmed by (Test) NONE Discharge Core Measures - Per Current guidelines, there needs to be overlap - treatment for the first 5 days of Warfarin therapy. - If discharged on Warfarin prior to 5 days of - overlap therapy, the patient will need to be - assessed for post discharge needs including - *Post discharge parental anticoagulation - *Warfarin and/or parental anticoagulation education - *Follow up date to check INR post discharge At least 5 days overlap therapy as Inpatient No Meds if any: Prescribed or Continued at Discharge Note: Overlap Therapy is Warfarin and Anticoagulant Meds if any: NOT Prescribed or Continued at Discharge
--- NOTE | 2018-02-07 12:49 | PN- Att Addend ---
Attending Addendum Attending Brief Note Events of the last few days reviewed patient feeling a little better. Still congested looser cough BP stable patient is afebrile, no major changes on physical. White count down to 11,400. Hemoglobin 9.6 hematocrit 27.6. Stools for occult blood were ordered. Electrolytes being corrected. Potassium 4.4 sodium 135, BUN 16 creatinine 1.1. We'll continue antibiotic treatment for today respiratory therapy increase activity again check stools for occult blood. Check labs in a.m. if stable then start disposition plans. Intake & Output 02/07 0400 Intake Total 1680 0 Output Total 300 Balance 1380 0 Intake, IV 1100 Intake, Oral 580 0 Number 0 Bowel Movements Output, Urine 300 Patient 152 lb 140 lb Weight Weight Chair scale Reported by Patient Measurement Method Laboratory Tests 02/07/18 0656: Anion Gap 12, Estimated GFR 47 L, BUN/Creatinine Ratio 14.5, CBC w Diff NO MAN DIFF REQ, RBC 3.36 L, MCV 83.0, MCH 28.6, MCHC 34.5, RDW 14.2, MPV 7.7, Gran % 62.0, Lymphocytes % 26.6, Monocytes % 9.1, Eosinophils % 1.9, Basophils % 0.4, Absolute Granulocytes 7.1 H, Absolute Lymphocytes 3.0, Absolute Monocytes 1.0 H, Absolute Eosinophils 0.2, Absolute Basophils 0.1 02/06/18 1952: Anion Gap 13, Estimated GFR 36 L, BUN/Creatinine Ratio 12.1, Iron 39, TIBC 320, Ferritin 149.0, CBC w Diff NO MAN DIFF REQ, RBC 3.74 L, MCV 83.7, MCH 26.9 L, MCHC 32.1 L, RDW 14.1, MPV 8.1, Gran % 59.6, Lymphocytes % 31.0, Monocytes % 7.2, Eosinophils % 1.6, Basophils % 0.6, Absolute Granulocytes 7.3 H, Absolute Lymphocytes 3.8 H, Absolute Monocytes 0.9 H, Absolute Eosinophils 0.2, Absolute Basophils 0.1 02/06/18 1321: Iron Cancelled, TIBC Cancelled, Ferritin Cancelled 02/06/18 0630: Anion Gap 11, Estimated GFR 53 L, BUN/Creatinine Ratio 18.0, Troponin I 0.02, CBC w Diff NO MAN DIFF REQ, RBC 3.36 L, MCV 83.5, MCH 27.9, MCHC 33.4, RDW 13.9 , MPV 8.2, Gran % 64.3, Lymphocytes % 25.5, Monocytes % 8.7, Eosinophils % 1.2, Basophils % 0.3, Absolute Granulocytes 7.6 H, Absolute Lymphocytes 3.0, Absolute Monocytes 1.0 H, Absolute Eosinophils 0.1, Absolute Basophils 0 02/05/182203: Troponin I 0.03 02/05/182203: Anion Gap 10, Estimated GFR 43 L, BUN/Creatinine Ratio 18.3 02/05/182149: Ur Random Creatinine 46.9, Ur Random Sodium 47, Ur Random Potassium 9.3, Fraction Sodium Excret 1.0 02/05/182010: Lactic Acid Cancelled 02/05/18 1728: Lactic Acid 1.1, Urinalysis MOD H, Urine Color YEL, Urine Clarity CLEAR, Urine pH 6.0, Ur Specific [place] 1.010, Urine Protein TRACE H, Urine Ketones NEG, Urine Nitrite NEG, Urine Bilirubin NEG, Urine Urobilinogen 1.0, Ur Leukocyte Esterase TRACE H, Ur Microscopic SEDIMENT EXAMINED, Urine WBC 3-5 H, Ur Epithelial Cells FEW, Urine Bacteria FEW H, Granular Casts FEW H, Urine Hemoglobin NEG, Urine Glucose NEG 02/05/18 1615: Anion Gap 15, Estimated GFR 39 L, BUN/Creatinine Ratio 18.5, Glucose 112 H, Calcium 9.1, Total Bilirubin 0.8, AST 58 H, ALT 58 H, Alkaline Phosphatase 105 , Troponin I 0.01, Qbq-I-Piinxtjpvcu Pept 1150 H, Total Protein 7.2, Albumin 4.1, Globulin 3.1, Albumin/Globulin Ratio 1.3, CBC w Diff NO MAN DIFF REQ, RBC 4.01 L, MCV 83.8, MCH 27.9, MCHC 33.3, RDW 14.0, MPV 7.6, Gran % 70.6, Lymphocytes % 19.0 L, Monocytes % 9.8 H, Eosinophils % 0.4, Basophils % 0.2, Absolute Granulocytes 9.9 H, Absolute Lymphocytes 2.7, Absolute Monocytes 1.4 H, Absolute Eosinophils 0.1, Absolute Basophils 0 Microbiology 04/10 1752 BLOOD: Blood Culture - RES 02/05 1728 URINE ROUT: Urine Culture - COMP 02/05 1728 BLOOD: Blood Culture - RES 02/05 1615 NASOPHARYN: Influenza Virus A & B Rapid Smear - COMP Microbiology 02/06 1752 BLOOD: Blood Culture - RES 02/05 1728 URINE ROUT: Urine Culture - COMP 02/05 172 BLOOD: Blood Culture - RES 02/05 161 NASOPHARYN: Influenza Virus A & B Rapid Smear - COMP Vital Signs Date Time Temp Pulse Resp B/P B/P Pulse O2 O2 Flow FiO2 Mean Ox Delivery Rate 02/07 0903 74 122/68 02/07 0902 74 122/68 02/07 0820 96 Room Air 02/07 0659 97.4 74 20 122/68 97 Room Air 02/07 0000 Room Air 02/06 2234 98.0 79 20 142/56 98 Room Air 02/06 1735 174/76 02/06 1630 97 Room Air 02/06 1531 98.1 81 20 174/76 98 Room Air
[2018-02-07 14:10] VITALS: BP 146/60
[2018-02-07 22:52] VITALS: BP 142/64
[2018-02-08 06:53] VITALS: BP 132/65
--- NOTE | 2018-02-08 07:48 | PN- Housestaff ---
Subjective Follow-up For: bronchitis new t wave ekg changes hyponatremia hypokalemia anemia Complaints: no complaints Tele-Events Since Last Visit: nsr no events Subjective: patient states that she continues to feel slightly "congested" in her chest. she also notes that she still has not had a bowel movement and is uncomfortable. Review of Systems Constitutional: Reports: no symptoms. Cardiovascular: Reports: no symptoms. Respiratory: Reports: see HPI, wheezing. Gastrointestinal: Reports: constipation. Genitourinary: Reports: no symptoms. Musculoskeletal: Reports: joint pain. Objective Last 24 Hrs of Vital Signs/I&O Vital Signs Date Time Temp Pulse Resp B/P B/P Pulse O2 O2 Flow FiO2 Mean Ox Delivery Rate 02/08 0653 97.8 69 20 132/65 97 Room Air 02/08 0000 Room Air 02/07 2252 98.2 78 18 142/64 97 Room Air 02/07 1644 97 Room Air 02/07 1410 98.0 79 20 146/60 96 Room Air 02/07 0903 74 122/68 02/07 0902 74 122/68 Intake & Output 02/08 1600 02/08 0800 02/08 0000 Intake Total 300 Output Total Balance 300 Intake, Oral 300 Patient 154 lb Weight Weight Bed scale Measurement Method Physical Exam General Appearance: Alert, Oriented X3, Cooperative, No Acute Distress Skin: No Rashes, No Breakdown, No Significant Lesion Skin Temp/Moisture Exam: Warm/Dry HEENT: Atraumatic, EOMI, Mucous Membr. moist/pink Cardiovascular: Regular Rate, Normal S1, Normal S2, No Murmurs Lungs: mild wheezing throughout Abdomen: Normal Bowel Sounds, Soft, No Tenderness Neurological: Normal Speech Extremities: No Clubbing, No Cyanosis, No Edema, Normal Pulses, No Tenderness/ Swelling Current Medications: Current Medications Sig/Nicola Start time Last Medication Dose Route Stop Time Status Admin Albuterol Sulfate 3 ML EVERY 4 HRS/AWAKE 02/06 1600 AC 02/07 INH 2014 Amlodipine Besylate 7.5 MG DAILY 02/07 0900 AC 02/07 PO 0903 Aspirin Buffered 81 MG DAILY 02/06 1000 AC 02/07 PO 09 Atorvastatin Calcium 40 MG 1700 02/06 1700 AC 02/07 PO 1656 Azithromycin 500 MG DAILY@0900 02/07 0900 AC 02/07 PO 02/11 0901 0901 Benzonatate 100 MG TID PRN 02/06 2145 AC 02/07 PO 02/09 2144 0901 Bisacodyl 5 MG ONE ONE 02/08 0800 DC PO 02/08 0801 Docusate Sodium 100 MG BID 02/07 0900 AC 02/07 PO 2102 Guaifenesin 10 ML Q4P PRN 02/06 0515 AC 02/07 PO 1656 Heparin Sodium 5,000 UNIT Q8 02/05 2200 AC 02/08 (Porcine) [place] 0532 Metoprolol Succinate 50 MG DAILY 02/06 1000 AC 02/07 PO 0902 Patient Medication 1 ED ONE ONE 02/07 1000 DC 02/07 Teaching ED 02/07 1001 1016 Polyethylene Glycol 17 GM DAILY 02/07 0900 AC 02/07 PO 1038 Senna 187 MG AT BEDTIME 02/07 2100 AC 02/07 PO 2103 Last 24 Hrs of Lab/Ronnell Results Last 24 Hrs of Labs/Mics: Laboratory Tests 02/08/18 0650: Anion Gap 11, Estimated GFR 53 L, BUN/Creatinine Ratio 13.0, CBC w Diff Pending , WBC Pending, RBC Pending, Hgb Pending, Hct Pending, MCV Pending, MCH Pending, MCHC Pending, RDW Pending, Plt Count Pending, MPV Pending, Gran % Pending, Lymphocytes % Pending, Monocytes % Pending, Eosinophils % Pending, Basophils % Pending, Absolute Granulocytes Pending, Absolute Lymphocytes Pending, Absolute Monocytes Pending, Absolute Eosinophils Pending, Absolute Basophils Pending Assessment/Plan Assessment: 82 year old female with PMHx of HTN, HLD, CAD s/p catheterization in March without stent, OA, spinal stenosis, aortic stenosis and carotid stenosis who presented for chief complaint of upper respiratory infection and generalize weakness. Recently the patient had UTI for which she was treated with ciprofloxacin, the patient developed rash allergic reaction for which she was switched to Macrobid. For the past week she started to complain of nonproductive cough, dyspnea, mild runny nose, and hoarseness of voice. Her symptom progressed through the week and started to be associated with generalized weakness and poor appetite. She denies fever, chills, chest pain, or palpitation. She denies dysuria, polyuria, or hematuria. Problem list * Dry cough possibly secondary to bronchitis or lisinopril?? * T-wave inversion in lead V4,5,6 * Generalize weakness most likely secondary to dehydration and poor oral intake * Hyponatremia most likely secondary to dehydration and hctz * hypokalemia * anemia * HTN and HLD * Aortic stenosis * Carotid stenosis * CAD s/p catheterization in March without stent Plan * Serial ekgs unchanged and trops negative, patient has no symptoms. * Hold lisinopril for cough and renal function changes, hydrochlorothiazide, and Triamterene for hyponatremia, renal function changes. * Continue aspirin and statin * amlodipine 7.5mg, good BP control today is 132/65. * continue outpatient metoprolol 50mg for her CAD * TRC/nebulizer as needed AND OXYGEN as needed * followed panculture so far negative * stopped ceftriaxone as she has received antibiotics fuill dose for uncomplicated uti * Guaifenesin as needed, Vikash Valero, azithromycin for her bronchitis, today is day 2, will be discharged with 3 days of 500mg tablets daily * follow na and k and replete k as needed. sodium today is 1345, potassium 4.6. patient was likely dehydrated as fena 1, urine random sodium normal and responded to fluids. additionally hctz could contribute so hold. hold lisinopril for possible cause of cough and hoarse voice, giving amlodipine now for blood pressure. she will be discharged on this dose of 7.5 amlodipine. * patient has a relative anemia- 9.5 today down from 11.2 on admission. iron studies normal. goal hb to stay above 8. * We will guaiac stools but as she is constipated and has not had a BM in 5 days we will give Colace, senna, MiraLAX, AND dulcolax tab for her constipation. * Patient is stabled for discharge and will follow up with her primary care doctor, dr. rizo outpatient -Heart healthy diet -DVT Prophylaxis: SC heparin -Code: Full Code. Problem List: 1. Bronchitis 2. Acute electrocardiogram changes 3. Hypokalemia 4. Hyponatremia 5. Hypertension 6. Hyperlipidemia 7. Anemia 8. Constipation Pain Ratin Pain Location: widespread mild joint pain Pain Goal: Remain pain free Pain Plan: na Tomorrow's Labs & Rationales: pt will be discharged
[2018-02-08] MEDS ORDERED: ZITHROMAX500 M2 PO (07:53)
[2018-02-08] MEDS ORDERED: BENZONATATE100 M1 PO (07:55)
[2018-02-08] MEDS ORDERED: GUAIFENESI100 MG/5 M PO (07:55)
[2018-02-08 07:56] LABS: ABSOLUTE BASOPHIL COUNT 0.1 /CUMM (0.0-0.2); ABSOLUTE EOSINOPHIL COUNT 0.3 /CUMM (0.0-0.7); ABSOLUTE GRANULOCYTE CT 7.7 /CUMM (1.4-6.5); ABSOLUTE LYMPH COUNT 4.2 /CUMM (1.2-3.4); ABSOLUTE MONOCYTE COUNT 0.9 /CUMM (0.10-0.60); BASOPHIL % 0.6 % (0.0-2.0); EOSINOPHIL % 2.6 % (0-5); GRANULOCYTE % 58.1 % (42.2-75.2); HEMATOCRIT 28.3 % (37-47); MEAN CORPUSCULAR HGB 28.2 PG (27.0-31.0); MEAN CORPUSCULAR HGB CONC 33.8 G/DL (33.0-37.0); MEAN CORPUSCULAR VOLUME 83.4 FL (81.0-99.0); MEAN PLATELET VOLUME 7.8 FL (7.4-10.4); PLATELET COUNT 445 /CUMM (130-400); RBC DISTRIBUTION WIDTH 14.1 % (11.5-14.5); RED BLOOD CELL CT 3.39 /CUMM (4.20-5.40)
[2018-02-08] MEDS ORDERED: NORVASC2.5 M1 PO (07:58)
[2018-02-08 08:42] LABS: WHITE BLOOD CELL COUNT 13.2 /CUMM (4.8-10.8)
[2018-02-08 08:53] VITALS: BP 132/65
--- NOTE | 2018-02-08 11:30 | PN- Att Addend ---
Attending Addendum Attending Brief Note Patient feeling and looking better. Vital signs are stable no fever, no major changes on physical. White count still slightly elevated at 13,000 will discharge today continue by mouth antibiotics. Now on amlodipine, monitor blood pressure at home and follow-up with veterinarian laboratory animal care and myself monitor CBC in my need GI workup as an outpatient Intake & Output 02/08 1600 02/08 0400 02/07 1600 02/07 0400 02/06 1600 02/06 0400 Intake Total 179 037 7776 0 Output Total 300 Balance 287 757 8824 0 Intake, IV 1100 Intake, Oral 300 480 580 0 Number 0 Bowel Movements Output, Urine 300 Patient 154 lb 152 lb 140 lb Weight Weight Bed scale Chair scale Reported by Patient Measurement Method Current Medications Sig/Nicola Start time Last Medication Dose Route Stop Time Status Admin Albuterol Sulfate 3 ML EVERY 4 HRS/AWAKE 02/06 1600 AC 02/08 INH 0927 Amlodipine Besylate 7.5 MG DAILY 02/07 0900 AC 02/08 PO 0853 Aspirin Buffered 81 MG DAILY 02/06 1000 AC 02/08 PO 0853 Atorvastatin Calcium 40 MG 1700 02/06 1700 AC 02/07 PO 1656 Azithromycin 500 MG DAILY@0900 02/07 0900 AC 02/08 PO 02/11 0901 0854 Benzonatate 100 MG TID PRN 02/06 2145 AC 02/08 PO 02/09 2144 0854 Bisacodyl 5 MG ONE ONE 02/08 0800 DC PO 02/08 0801 Docusate Sodium 100 MG BID 02/07 0900 AC 02/08 PO 0853 Guaifenesin 10 ML Q4P PRN 02/06 0515 AC 02/07 PO 1656 Heparin Sodium 5,000 UNIT Q8 02/05 2200 AC 02/08 (Porcine) [place] 0532 Metoprolol Succinate 50 MG DAILY 02/06 1000 AC 02/08 PO 0854 Polyethylene Glycol 17 GM DAILY 02/07 0900 AC 02/08 PO 0905 Senna 187 MG AT BEDTIME 02/07 2100 AC 02/07 PO 2103 Laboratory Tests 02/08/18 0650: Anion Gap 11, Estimated GFR 53 L, BUN/Creatinine Ratio 13.0, CBC w Diff MAN DIFF ORDERED, RBC 3.39 L, MCV 83.4, MCH 28.2, MCHC 33.8, RDW 14.1, MPV 7.8, Gran % 58.1, Lymphocytes % 31.8, Monocytes % 6.9, Eosinophils % 2.6, Basophils % 0.6, Absolute Granulocytes 7.7 H, Segmented Neutrophils 50, Band Neutrophils 5, Absolute Lymphocytes 4.2 H, Lymphocytes 38, Monocytes 5, Absolute Monocytes 0.9 H, Eosinophils 1, Absolute Eosinophils 0.3, Absolute Basophils 0.1, Metamyelocytes 1, Platelet Estimate VERIFIED BY SMEAR, Polychromasia 1+, Poikilocytosis 1+, Ovalocytes 1+ 02/07/18 0656: Anion Gap 12, Estimated GFR 47 L, BUN/Creatinine Ratio 14.5, CBC w Diff NO MAN DIFF REQ, RBC 3.36 L, MCV 83.0, MCH 28.6, MCHC 34.5, RDW 14.2, MPV 7.7, Gran % 62.0, Lymphocytes % 26.6, Monocytes % 9.1, Eosinophils % 1.9, Basophils % 0.4, Absolute Granulocytes 7.1 H, Absolute Lymphocytes 3.0, Absolute Monocytes 1.0 H, Absolute Eosinophils 0.2, Absolute Basophils 0.1 02/06/18 195: Anion Gap 13, Estimated GFR 36 L, BUN/Creatinine Ratio 12.1, Iron 39, TIBC 320, Ferritin 149.0, CBC w Diff NO MAN DIFF REQ, RBC 3.74 L, MCV 83.7, MCH 26.9 L, MCHC 32.1 L, RDW 14.1, MPV 8.1, Gran % 59.6, Lymphocytes % 31.0, Monocytes % 7.2, Eosinophils % 1.6, Basophils % 0.6, Absolute Granulocytes 7.3 H, Absolute Lymphocytes 3.8 H, Absolute Monocytes 0.9 H, Absolute Eosinophils 0.2, Absolute Basophils 0.1 02/06/18 1321: Iron Cancelled, TIBC Cancelled, Ferritin Cancelled 02/06/18 0630: Anion Gap 11, Estimated GFR 53 L, BUN/Creatinine Ratio 18.0, Troponin I 0.02, CBC w Diff NO MAN DIFF REQ, RBC 3.36 L, MCV 83.5, MCH 27.9, MCHC 33.4, RDW 13.9 , MPV 8.2, Gran % 64.3, Lymphocytes % 25.5, Monocytes % 8.7, Eosinophils % 1.2, Basophils % 0.3, Absolute Granulocytes 7.6 H, Absolute Lymphocytes 3.0, Absolute Monocytes 1.0 H, Absolute Eosinophils 0.1, Absolute Basophils 0 02/05/182203: Troponin I 0.03 02/05/182203: Anion Gap 10, Estimated GFR 43 L, BUN/Creatinine Ratio 18.3 02/05/182149: Ur Random Creatinine 46.9, Ur Random Sodium 47, Ur Random Potassium 9.3, Fraction Sodium Excret 1.0 02/05/182010: Lactic Acid Cancelled 02/05/181727: Lactic Acid 1.1, Urinalysis MOD H, Urine Color YEL, Urine Clarity CLEAR, Urine pH 6.0, Ur Specific [place] 1.010, Urine Protein TRACE H, Urine Ketones NEG, Urine Nitrite NEG, Urine Bilirubin NEG, Urine Urobilinogen 1.0, Ur Leukocyte Esterase TRACE H, Ur Microscopic SEDIMENT EXAMINED, Urine WBC 3-5 H, Ur Epithelial Cells FEW, Urine Bacteria FEW H, Granular Casts FEW H, Urine Hemoglobin NEG, Urine Glucose NEG 02/05/18 161: Anion Gap 15, Estimated GFR 39 L, BUN/Creatinine Ratio 18.5, Glucose 112 H, Calcium 9.1, Total Bilirubin 0.8, AST 58 H, ALT 58 H, Alkaline Phosphatase 105 , Troponin I 0.01, Bep-Y-Akpsonnofuj Pept 1150 H, Total Protein 7.2, Albumin 4.1, Globulin 3.1, Albumin/Globulin Ratio 1.3, CBC w Diff NO MAN DIFF REQ, RBC 4.01 L, MCV 83.8, MCH 27.9, MCHC 33.3, RDW 14.0, MPV 7.6, Gran % 70.6, Lymphocytes % 19.0 L, Monocytes % 9.8 H, Eosinophils % 0.4, Basophils % 0.2, Absolute Granulocytes 9.9 H, Absolute Lymphocytes 2.7, Absolute Monocytes 1.4 H, Absolute Eosinophils 0.1, Absolute Basophils 0 Microbiology 02/06 1752 BLOOD: Blood Culture - RES 02/06 1728 URINE ROUT: Urine Culture - COMP 02/06 1728 BLOOD: Blood Culture - RES 02/05 1615 NASOPHARYN: Influenza Virus A & B Rapid Smear - COMP Microbiology 02/06 1752 BLOOD: Blood Culture - RES 02/06 1728 URINE ROUT: Urine Culture - COMP 04/10 1728 BLOOD: Blood Culture - RES 02/05 1615 NASOPHARYN: Influenza Virus A & B Rapid Smear - COMP Vital Signs Date Time Temp Pulse Resp B/P B/P Pulse O2 O2 Flow FiO2 Mean Ox Delivery Rate 02/08 0928 99 Room Air Room Air 02/08 0853 69 132/65 02/08 0800 94 Room Air 02/08 0653 97.8 69 20 132/65 97 Room Air 02/08 0000 Room Air 02/07 2252 98.2 78 18 142/64 97 Room Air 02/07 1644 97 Room Air 02/07 1410 98.0 79 20 146/60 96 Room Air
[2018-02-08] MEDS ORDERED: TOPROL XL50 M1 PO (12:30)
== END 2018-02-08 13:00 | DRG 202 ==
LOC: ERH 15:03 → ERHI 20:51 → 1NO 20:51 → ENRESERV 21:29 → 1NO 23:09 → ENPENDDIS 02-08 11:19 → ENTRNSPT 02-08 12:40 → EDTRNSPT 02-08 12:45 → EDTRNSPTSTS 02-08 12:45 → CMPTRNSPT 02-08 12:56 → 1NO 02-08 13:00
PROVIDERS: Emergency Medicine; Student in an Organized Health Care Education/Training Program
DX: J40 Bronchitis, not specified as acute or chronic (principal); E87.1 Hypo-osmolality and hyponatremia; E86.0 Dehydration; D64.9 Anemia, unspecified; N39.0 Urinary tract infection, site not specified; J06.9 Acute upper respiratory infection, unspecified; I35.0 Nonrheumatic aortic (valve) stenosis; R53.1 Weakness; J04.0 Acute laryngitis; I12.9 Hypertensive chronic kidney disease with stage 1 through stage 4 chronic kidney disease, or unspecified chronic kidney disease; N18.9 Chronic kidney disease, unspecified; E78.5 Hyperlipidemia, unspecified; I25.10 Atherosclerotic heart disease of native coronary artery without angina pectoris; M19.91 Primary osteoarthritis, unspecified site; M48.00 Spinal stenosis, site unspecified; Z79.82 Long term (current) use of aspirin; R94.31 Abnormal electrocardiogram [ECG] [EKG]; Z88.1 Allergy status to other antibiotic agents; Z88.0 Allergy status to penicillin; Z88.2 Allergy status to sulfonamides; E87.6 Hypokalemia; Z98.61 Coronary angioplasty status; K59.00 Constipation, unspecified
CPT/HCPCS: 1NSP; 84133; 84300; 36592; 71045; 81001; 82436; 82570; 87040; 87086; 87804; 87804-59; 93005; 93010; 96374; J0456; J0696; J1644